=== PATIENT | male | born 1970 | race Caucasian/White ===

== ENCOUNTER 2017-10-09 19:39 | Emergency (ER) | payer OTHER ==
[2017-10-10 02:38] VITALS: BP 133/81
[2017-10-10] MEDS ORDERED: PROPARACAINE 0.5% OPHTH DROPS 15 ML RIGHTEYE STA (02:51)
--- NOTE | 2017-10-10 02:51 | ED Physician Documentation ---
PD HPI OPHTHO - Stated complaint Stated Complaint: SWOLLEN R LOWER EYELID - Chief complaint Chief Complaint: Heent - History obtained from History obtained from: Patient - History of Present Illness Timing - onset: How many days ago (2) Timing - details: Gradual onset Pain level now: 6 Location: Right Quality / character: Aching, Throbbing Associated symptoms: Redness, Swelling Contributing factors: FB (see below). No: Recent URI, Wears glasses, Wears contacts Similar symptoms before: Has not had sx before Recently seen: Not recently seen - Additional information Additional information: right eye lower lid redness, pain, swelling x 2 days, no injury and no previous h/o similar symptoms. he feels symptoms started 2 days ago when he was walking by someone who was using a sandblaster and patient felt sensation of sand getting into his right eye. however, he does not have FB sensation at this time Review of Systems Constitutional: denies: Fever Eyes: reports: Other (right eye lower lid swelling, redness, tenderness, but no symptoms referable to the surface (corneal, conjunctival) of the eye itself). denies: Loss of vision, Decreased vision, Photophobia, Discharge, Irritation PD PAST MEDICAL HISTORY - Past Medical History Past Medical History: No Cardiovascular: None Respiratory: None Neuro: None Endocrine/Autoimmune: None GI: None : None HEENT: None Psych: None Musculoskeletal: None Derm: None - Past Surgical History Past Surgical History: Yes General: Gastric surgery Ortho: Carpal Tunnel surgery, Other - Present Medications Home Medications: Ambulatory Orders Medication Instructions Recorded Confirmed Cephalexin [Keflex] 500 mg PO Q6HR #27 capsule 10/10/17 Erythromycin Base [Erythromycin 1 film RIGHTEYE BID #1 oint...g. 10/10/17 Ophthalmic Ointment] - Allergies Allergies/Adverse Reactions: Allergies Allergy/AdvReac Type Severity Reaction Status Date / Time No Known Drug Allergies Allergy Verified 10/09/17 20:07 - Social History Does the pt smoke?: No Smoking Status: Never smoker Does the pt drink ETOH?: Yes Does the pt have substance abuse?: No - Immunizations Immunizations are current?: Yes - POLST Patient has POLST: No PD ED PE NORMAL - Vitals Vital signs reviewed: Yes - General General: Alert and oriented X 3, No acute distress, Well developed/nourished PD ED PE EXPANDED - HEENT HEENT Visual: 1 - swelling (swelling, erythema, tenderness, fluctuance lower lid externally ( normal mucosal surface) with surrounding erythema), tenderness - Eyes Eyes: No eyelid FB (everted), Nl conjunctiva/sclera. No: Exudate, Subconj hemorrhage Results - Vitals Vitals: Oxygen O2 Source Room air PD MEDICAL DECISION MAKING - ED course Complexity details: considered differential, d/w patient ED course: beveled edge of 20g needle used to unroof infected stye and subsequent mild pressure expressed purulent material. abx. ointement and PO antibiotics given and prescribed. - Sepsis Event Vital Signs: Oxygen O2 Source Room air Departure - Departure Disposition: 01 Home, Self Care Clinical Impression: Hordeolum Qualifiers: Hordeolum type: externum Laterality: right Eyelid: lower Qualified Code(s): H00.012 - Hordeolum externum right lower eyelid Condition: Good Instructions: ED Hordeolum Prescriptions: Cephalexin [Keflex] 500 mg PO Q6HR #27 capsule Erythromycin Base [Erythromycin Ophthalmic Ointment] 1 film RIGHTEYE BID #1 oint...g. Comments: Follow up with ophthalmology; contact your insurance provider or primary care physician's office to get a referral. You should follow up within 3-5 days. Forms: Activity restrictions Discharge Date/Time: 10/10/17 03:36
[2017-10-10] MEDS ORDERED: cephALEXin 250 MG CAPSULE PO STA (03:25)
[2017-10-10] MEDS ORDERED: ERYTHROMYCIN OPHTH OINT 1 GM TUBE RIGHTEYE STA (03:25)
== END 2017-10-10 03:36 | disposition home or self-care (01) ==
LOC: ED 19:39
DX: H00.12 Chalazion right lower eyelid (principal)
CPT/HCPCS: 99283; A9270; J3490